=== PATIENT | female | born 1965 | race Caucasian/White ===

== ENCOUNTER 2024-08-09 15:12 | Observation (INO) ==
[~2024-08-09 15:12] MED LIST: Lidocaine 2% PF 5 ML VIAL ONE; Metoclopramide 5 MG/ML VIAL (10 mg) IV PRN; Midazolam 2 mg/2 ml VIAL 1 mg/ml 2 ml VIAL (2 mg) ONE; NS 0.45% 1000 ml BAG 1,000 ML IV SCH; Naloxone 0.4 mg VIAL 0.4 mg/ml 1 ml VIAL IV PRN; Ondansetron 4 mg VIAL 2 MG/ML 2 ml VIAL IV PRN; ROPIVACAINE 5 MG/ML 30 ML BTL (0.5%) ONE; fentaNYL 100 mcg/2 ml 50 MCG/ML VIAL ONE
[2024-08-09] MEDS ORDERED: Tranexamic Acid 1 GM/100ML BAG 2,000 MG/200 ML BAG IV ONE (15:23)
[2024-08-09] MEDS ORDERED: ceFAZolin 2 GM PREMIX 2 GM/50 ML BAG ONE (15:23)
[2024-08-09 15:56] LABS: Rapid COVID-19 Molecular Undetected (Undetected)
[2024-08-09] MEDS ORDERED: Scopolamine 1 mg/72hr PATCH ONE (15:57)
[2024-08-09] MEDS: Scopolamine 1 mg/72hr PATCH TRANSDERM ONE (16:01)
[2024-08-09] MEDS ORDERED: ROPIVACAINE 5 MG/ML 30 ML BTL (0.5%) ONE (16:44)
[2024-08-09] MEDS ORDERED: Calcium Carb (TUMS) 500 mg CHEW TAB PO PRN (17:05)
[2024-08-09] MEDS ORDERED: Morphine 2 MG/ML SYRINGE IV PRN (17:05)
[2024-08-09] MEDS ORDERED: Ondansetron 4 mg VIAL 2 MG/ML 2 ml VIAL IV PRN (17:05)
[2024-08-09] MEDS ORDERED: Lactulose 30 ml UDC PO PRN (17:05)
[2024-08-09] MEDS ORDERED: Magnesium Hydroxide LIQ 30 ML UDC PO PRN (17:05)
[2024-08-09] MEDS ORDERED: Ondansetron ODT 4 mg TAB 4 MG TAB PO PRN (17:05)
[2024-08-09] MEDS ORDERED: Lidocaine 2% PF 5 ML VIAL ONE (17:22)
[2024-08-09] MEDS ORDERED: Rocuronium 50 mg VIAL 10 mg/ml 5 ml VIAL (50 mg) ONE (17:22)
[2024-08-09] MEDS ORDERED: Propofol 10 MG/ML 20 ML BTL ONE (17:22)
[2024-08-09] MEDS ORDERED: HYDROmorphone 0.5 MG/0.5 ML SYRINGE ONE (17:57)
[2024-08-09] MEDS ORDERED: Ondansetron 4 mg VIAL 2 MG/ML 2 ml VIAL ONE (17:57)
[2024-08-09] MEDS ORDERED: Dexamethasone IV 4 MG/ML VIAL 1 ml VIAL ONE (17:57)
[2024-08-09] MEDS ORDERED: fentaNYL 100 mcg/2 ml 50 MCG/ML VIAL ONE (19:53)
[2024-08-09] MEDS: fentaNYL 100 mcg/2 ml 50 MCG/ML VIAL IV PRN (19:55)
[2024-08-09] MEDS: Lactated Ringers 1000 ml BAG 1,000 ML IV SCH ×2 (21:10→21:52)
[2024-08-09] MEDS: Magnesium Hydroxide LIQ 30 ML UDC PO SCH (22:21)
[2024-08-09] MEDS: Buffered Lidocaine 1% SYRIN 1 ml INTRADERM ONE (22:34)
[2024-08-09] MEDS: Acetaminophen IV 1 GM/100ML 1,000 MG/100 ML BAG IV ONE (22:34)
[2024-08-09] MEDS ORDERED: Dextrose 50% Syringe 50 ml 25 GM/50 ML SYRINGE IV PUSH PRN (23:53)
[2024-08-10] MEDS: ceFAZolin 2 GM PREMIX 2 GM/50 ML BAG IV SCH (01:13)
[2024-08-10 05:58] LABS: Hematocrit 34.6 % (35-45); Hemoglobin 11.8 g/dL (11.5-14.3); Mean Platelet Volume 8.4 fL (7.5-11.2); Platelet Count 214 10^3/uL (150-450)
[2024-08-10 06:18] LABS: Calcium 8.9 mg/dL (8.6-10.3); Creatinine, Serum 1.19 mg/dL (0.51-0.95); Potassium 4.8 mmol/L (3.5-5.0); eGFR CKD-EPI 52.7 (>60)
[2024-08-10] MEDS: Venlafaxine XR 75 mg PO SCH (09:17)
[2024-08-10] MEDS: Vitamin THERAPEUTIC TAB PO SCH (09:18)
[2024-08-10] MEDS: Olodaterol Inhaler MDI INH SCH (09:19)
== END 2024-08-10 18:47 | disposition home or self-care (01) ==
LOC: OR 15:12 → SSU 15:12
PROVIDERS: ADMIT Orthopaedic Surgery Adult Reconstructive Orthopaedic Surgery; ATTEND Orthopaedic Surgery Adult Reconstructive Orthopaedic Surgery